=== PATIENT | female | born 1975 | race Caucasian/White ===

== ENCOUNTER → 2017-11-03 | Outpatient (CLI) | payer BC ==
--- NOTE | 2017-11-03 14:14 | MM ---
Reason for exam: screening (asymptomatic). Baseline mammogram. History: Family history of breast cancer in maternal aunt at age 65. Taking hormonal contraceptives for 25 years. Physical Findings: Nurse did not find any significant physical abnormalities on exam. MG Screening Mammo w CAD Bilateral CC and MLO view(s) were taken. Nodular density upper outer quadrant right breast 5.9cm from nipple. Abnormality far upper outer left breast. These results were verbally communicated with the patient and result sheet given to the patient on 11/03/17. ASSESSMENT: Incomplete: need additional imaging evaluation, BI-RAD 0 RECOMMENDATION: Special view mammogram of both breasts. If lesion persists on supplemental views, image directed ultrasound is recommended. [facility] will attempt to contact patient to return for supplemental views and ultrasound if indicated.
--- NOTE | 2017-11-03 14:19 | MM ---
Reason for exam: additional evaluation requested from abnormal screening. History: Family history of breast cancer in maternal aunt at age 65. Taking hormonal contraceptives for 25 years. Physical Findings: Breast exam preformed at baseline screening. MG Work Up Mamm w CAD BILAT Bilateral LM view(s) were taken. Spot compression CC and spot compression MLO view(s) were taken of the right breast. CC view(s) were taken of the left breast. The breast tissue is heterogeneously dense. This may lower the sensitivity of mammography. Nodule persists 9 o'clock region right breast. Left breast is negative. These results were verbally communicated with the patient and result sheet given to the patient on 11/03/17. ASSESSMENT: Incomplete: need additional imaging evaluation, BI-RAD 0 RECOMMENDATION: Ultrasound of the right breast.
--- NOTE | 2017-11-03 14:22 | USB ---
Reason for exam: additional evaluation requested from abnormal screening. History: Family history of breast cancer in maternal aunt at age 65. Taking hormonal contraceptives for 25 years. US Breast Workup Limited RT Right breast ultrasound demonstrates a 0.5 x 0.4 x 0.9cm mixed lesion at 9 o'clock and a 0.8 x 0.4 x 0.8cm mixed lesion at 10 o'clock. These results were verbally communicated with the patient and result sheet given to the patient on 11/03/17. ASSESSMENT: Probably benign, BI-RAD 3 RECOMMENDATION: Follow-up diagnostic mammogram and ultrasound of the right breast in 6 months.
== END | disposition home or self-care (01) ==
LOC: RADMAMWWP 11:06
PROVIDERS: ATTEND Obstetrics & Gynecology
DX: Z12.31 Encounter for screening mammogram for malignant neoplasm of breast (principal); R92.8 Other abnormal and inconclusive findings on diagnostic imaging of breast
CPT/HCPCS: 77066; 77067

== ENCOUNTER → 2018-09-13 | Outpatient (CLI) | payer BC ==
--- NOTE | 2018-09-13 09:32 | MM ---
Reason for exam: clinical finding. Last mammogram was performed 10 months ago. History: Family history of breast cancer in maternal aunt at age 65. Taking hormonal contraceptives for 25 years. Indicated problem(s): lump or thickening and pain in the right breast. Physical Findings: Nurse did not find any significant physical abnormalities on exam. MG Diagnostic Mammo RT w CAD CC and MLO view(s) were taken of the right breast. Prior study comparison: November 03, 2017, bilateral MG work up mamm w CAD BILAT. November 03, 2017, bilateral MG screening mammo w CAD. The breast tissue is heterogeneously dense. This may lower the sensitivity of mammography. There is chronic nodularity in the left breast laterally. Previous central nodularity on the MLO view not well seen currently, either resolved or obscured. These results were verbally communicated with the patient and result sheet given to the patient on 09/13/18. ASSESSMENT: Incomplete: need additional imaging evaluation, BI-RAD 0 RECOMMENDATION: Ultrasound of the right breast.
--- NOTE | 2018-09-13 09:44 | USB ---
Reason for exam: additional evaluation requested from abnormal screening. History: Family history of breast cancer in maternal aunt at age 65. Taking hormonal contraceptives for 25 years. US Breast RT Right complete breast ultrasound includes all four quadrants, the retroareolar region and axilla. Finding demonstrates a 0.8 x 0.4 x 1.0cm mixed lesion at 9 o'clock versus 5 x 4 x 9mm previously and a 0.9 x 0.6 x 1.2cm mixed, vascular lesion at 10 o'clock versus 4 x 4 x 8mm previously. Patient 4 months late for 6 month follow up. As annual exam due in 2 months, left breast mammogram can be performed at that time. Right breast can be reassessed in 8 months to keep the patient on schedule. These results were verbally communicated with the patient and result sheet given to the patient on 09/13/18. ASSESSMENT: Probably benign, BI-RAD 3 RECOMMENDATION: Follow-up diagnostic mammogram of only the left breast if possible in 2 months ( for the patient's annual exam). Follow-up diagnostic mammogram and ultrasound of the right breast in 8 months ( to keep the patient on an appropriate schedule). [facility]
== END ==
LOC: RADMAMWWP 07:45
PROVIDERS: ATTEND Obstetrics & Gynecology
DX: R92.8 Other abnormal and inconclusive findings on diagnostic imaging of breast (principal); N64.4 Mastodynia
CPT/HCPCS: 77065